=== PATIENT | female | born 1995 | race Caucasian/White ===

== ENCOUNTER 2022-06-24 19:10 | Emergency (ER) | payer MEDICAID ==
[~2022-06-24] VITALS: Ht 165.1 cm; Wt 112.0 kg
[2022-06-24 19:45] VITALS: BP 150/88
[2022-06-24] MEDS ORDERED: CEPH-585 PO (21:08)
[2022-06-24] MEDS ORDERED: cephalexin 250mg capsule PO ONE (21:10)
== END 2022-06-24 21:56 | disposition home or self-care (01) ==
LOC: ER 19:10
DX: T80.1XXA Vascular complications following infusion, transfusion and therapeutic injection, initial encounter (principal); I80.8 Phlebitis and thrombophlebitis of other sites; Z87.442 Personal history of urinary calculi; Z79.1 Long term (current) use of non-steroidal anti-inflammatories (NSAID); X58.XXXA Exposure to other specified factors, initial encounter; Y93.89 Activity, other specified; Y92.89 Other specified places as the place of occurrence of the external cause; Y99.8 Other external cause status
CPT/HCPCS: 99283